=== PATIENT | female | born 1995 | race Caucasian/White ===

== ENCOUNTER 2021-01-11 22:17 | Emergency (ER) | payer OTHER ==
[~2021-01-11] VITALS: Ht 154.9 cm; Wt 102.1 kg
[2021-01-11] MEDS ORDERED: SIMVASTATIN20 MG PO (22:32)
[2021-01-11] MEDS ORDERED: ZONISAMIDE50 MG PO (22:33)
[2021-01-11] MEDS ORDERED: AMITRIPTYLINE100 MG PO (22:33)
[2021-01-11] MEDS ORDERED: OMEPRAZOLE40 MG PO (22:33)
[2021-01-11] MEDS ORDERED: LOSARTAN POTASS25 MG PO (22:33)
[2021-01-12] MEDS ORDERED: IBU600 MG PO (02:17)
== END 2021-01-12 02:25 | disposition home or self-care (01) ==
LOC: ED 22:17
DX: S16.1XXA Strain of muscle, fascia and tendon at neck level, initial encounter (principal); V89.2XXA Person injured in unspecified motor-vehicle accident, traffic, initial encounter; Z88.5 Allergy status to narcotic agent; Z88.8 Allergy status to other drugs, medicaments and biological substances; Z79.899 Other long term (current) drug therapy
CPT/HCPCS: 71260; 72125; 74177; 80053; 82150; 82553; 83605; 83690; 85025; 99284-25; G0480; J1885; Q9967